=== PATIENT | male | born 1955 | race Caucasian/White ===

== ENCOUNTER 2025-02-15 12:39 | Outpatient (CLI) | payer MEDICARE ==
--- NOTE | 2025-02-16 16:51 | RADIOLOGY REPORT ---
PROCEDURE: MR MRI HEAD INDICATION: MIGRAINE, UNSP, NOT INTRACTABLE, WITHOUT STATUS MIGRAINE EXAM DATE: 02/15/2025 12:23 PM COMPARISON: None TECHNIQUE: MRI of the brain without intravenous contrast. FINDINGS: Diffusion weighted images of the brain demonstrate no evidence of acute infarction. There is no evidence of acute intracranial hemorrhage, extra-axial collection, mass effect, midline s hift, herniation or hydrocephalus. The ventricles, sulci and cisterns appear age appropriate. Mild changes of chronic microvascular ischemic disease. There are no signal abnormalities on the susceptibility weighted sequences. The major vascular flow voids are present. Left mastoid effusion. The surrounding soft tissues and osseous structures are unremarkable. IMPRESSION: 1. No evidence of acute infarction, intracranial hemorrhage, mass effect or hydrocephalus. Mild hawley es of chronic microvascular ischemic disease. HS:Y
== END 2025-02-15 23:59 | disposition home or self-care (01) ==
LOC: MRI02 12:39
PROVIDERS: ATTEND Physician Assistant
DX: H70.92 Unspecified mastoiditis, left ear (principal); G43.909 Migraine, unspecified, not intractable, without status migrainosus
CPT/HCPCS: 70551